=== PATIENT | female | born 1965 | race Caucasian/White ===

== ENCOUNTER 2020-07-24 15:33 | Outpatient (CLI) | payer BC, SELFPAY ==
[2020-07-24 17:04] LABS: Hematocrit 50.9 % (37.0-47.0); Hemoglobin 16.3 g/dL (12.0-15.0); Mean Corpuscular Hemoglobin 27.1 pg (26-34); Mean Corpuscular Volume 84.6 fl (80-100); Mean Platelet Volume 9.9 fl (7.4-10.4); Platelet Count Result 488 k/mm3 (150-375); Red Blood Count 6.02 M/mm3 (4.2-5.4); Red Cell Distribution Width 15.7 % (11.5-14.5); White Blood Count 21.6 K/mm3 (4.5-10.0)
[2020-07-24 17:15] LABS: Alanine Aminotransferase 29 U/L (4-35); Albumin Level 4.4 g/dL (3.5-5.1); Alkaline Phosphatase 104 U/L (38-126); Anion Gap 11 mmol/L (8-16); Aspartate Amino Transferase 29 U/L (14-36); Bilirubin,Total 0.6 mg/dL (0.2-1.3); Blood Urea Nitrogen 30 mg/dL (7-17); Calcium 9.6 mg/dL (8.4-10.2); Carbon Dioxide 30 mmol/L (22-30); Chloride 100 mmol/L (98-107); Cholesterol 226 mg/dL (0-200); Estimated Glomerular Filt Rate 23; Glucose 144 mg/dL (65-105); HDL Direct 41 mg/dL; Potassium 3.8 mmol/L (3.4-5.0); Sodium 141 mmol/L (137-145); Triglycerides 191 mg/dL (<150)
[2020-07-24 17:26] LABS: LDL Cholesterol Direct 145 mg/dL
[2020-07-24 17:38] LABS: Hemoglobin A1C 7.2 % (<5.7)
== END 2020-07-24 15:34 | disposition home or self-care (01) ==
LOC: ANHLAB 15:35
PROVIDERS: PCP Family Medicine; Visit Provider Family Medicine
DX: Z13.1 Encounter for screening for diabetes mellitus (principal); I10 Essential (primary) hypertension; G89.29 Other chronic pain; E66.01 Morbid (severe) obesity due to excess calories; E11.9 Type 2 diabetes mellitus without complications
CPT/HCPCS: 36415; 80053; 80061; 83036; 85027

== ENCOUNTER 2020-08-20 16:54 | Outpatient (CLI) | payer BC, SELFPAY ==
[2020-08-20 17:14] LABS: Basophils Absolute Auto 0.1 K/mm3 (0.0-0.1); Basophils Percent Auto 0.6 % (0.2-1.2); Eosinophils Absolute Auto 0.6 K/mm3 (0-0.3); Eosinophils Percent Auto 3.4 % (0-4.4); Hematocrit 45.7 % (37.0-47.0); Hemoglobin 14.2 g/dL (12.0-15.0); Immature Granulocyte Absolute 0.15 K/mm3 (0.00-0.031); Immature Granulocyte Percent A 0.8 % (0-0.5); Lymphocytes Absolute Auto 3.81 K/mm3 (0.9-3.2); Lymphocytes Percent Auto 20.4 % (18.3-44.2); Mean Corpuscular HGB Conc 31.1 g/dl (32-36); Mean Platelet Volume 9.4 fl (7.4-10.4); Monocytes Absolute Auto 1.2 K/mm3 (0.1-0.6); Monocytes Percent Auto 6.4 % (2.6-8.5); Neutrophils Absolute Auto 12.8 K/mm3 (1.3-6.7); Neutrophils Percent Auto 68.4 % (45.5-73.1); Platelet Count Result 366 k/mm3 (150-375); Red Blood Count 5.25 M/mm3 (4.2-5.4); Red Cell Distribution Width 15.1 % (11.5-14.5); White Blood Count 18.7 K/mm3 (4.5-10.0)
== END 2020-08-20 16:55 | disposition home or self-care (01) ==
LOC: ANHLAB 16:55
PROVIDERS: PCP Family Medicine; Visit Provider Physician Assistant
DX: D72.829 Elevated white blood cell count, unspecified (principal)
CPT/HCPCS: 36415; 85025

== ENCOUNTER → 2020-09-03 16:11 | Outpatient (CLI) | payer BC, SELFPAY ==
--- NOTE | ~2020-09-03 | MR_ITS ---
EXAMINATION: MR brain/brain stem wo con DATE: 09/03/2020 17:21 INDICATION: Drug induced subacute dyskinesia TECHNIQUE: Magnetic resonance imaging (MRI) of the brain and brainstem was performed without intraven ous contrast. Sequences included sagittal and axial T1-weighted SE, axial diffusion-weighted FS SE, a xial T2*-weighted GRE, axial T2-weighted FLAIR, and axial T2-weighted FSE. Apparent diffusion coeffic ient (ADC) maps were created. COMPARISON: 03/07/2008 FINDINGS: There are no areas of restricted diffusion to suggest acute infarction. No intracranial hemorrhage or abnormal intracranial mass lesion. There are no intraparenchymal signal abnormalities. The ventricle s are symmetric and normal in size. No significant change in previously noted increased prominence of the CSF spaces overlying the frontal lobes, left more prominent than right. Flow voids are seen in t he cerebral arteries on the T2-weighted sequences consistent with their expected patency. Changes of bilateral intraocular lens replacement. Visualized orbits and soft tissues are unremarkable. IMPRESSION: 1. Stable appearance of increased CSF spaces overlying the bilateral frontal lobes, left greater than right. Otherwise unremarkable brain MR. Reviewed, dictated and finalized at location . MINER IMPRESSION: 1. Stable appearance of increased CSF spaces overlying the bilateral frontal lo bes, left greater than right. Otherwise unremarkable brain MR.
== END ==
PROVIDERS: PCP Family Medicine; Visit Provider Psychiatry & Neurology Neurology
DX: G24.01 Drug induced subacute dyskinesia (principal)
CPT/HCPCS: 70551

== ENCOUNTER 2020-09-09 12:00 | Outpatient (CLI) | payer BC, SELFPAY ==
--- NOTE | ~2020-09-09 | US_ITS ---
EXAMINATION:US venous doppler LE RT INDICATION:Right leg pain for months. TECHNIQUE: Multiple grayscale, color flow and Doppler images of the right lower extremity deep venous systems were obtained and reviewed. COMPARISON:No prior studies for comparison. FINDINGS: The common femoral, superficial femoral and popliteal veins demonstrate normal respiratory variation, augmentation and compressibility. Color flow is also seen within the greater saphenous an d profunda veins. The posterior tibial, peroneal and soleus veins are not visualized. IMPRESSION: 1: No lower extremity deep venous thrombosis. Limited study. Reviewed, dictated and finalized at location A. ROOM ATTENDANT
== END 2020-09-09 12:01 | disposition home or self-care (01) ==
PROVIDERS: PCP Family Medicine; Visit Provider Physician Assistant
DX: M79.604 Pain in right leg (principal); M79.89 Other specified soft tissue disorders
CPT/HCPCS: 93971

== ENCOUNTER 2020-09-17 12:41 | Outpatient (CLI) | payer BC, SELFPAY ==
[2020-09-21 14:46] LABS: Ceruloplasmin 34 mg/dL (18-53)
== END 2020-09-17 12:42 | disposition home or self-care (01) ==
LOC: ANHLAB 12:44
PROVIDERS: PCP Family Medicine; Visit Provider Psychiatry & Neurology Neurology
DX: G24.01 Drug induced subacute dyskinesia (principal)
CPT/HCPCS: 36415; 82390; 82525

== ENCOUNTER 2020-09-30 13:13 | Outpatient (CLI) | payer BC, SELFPAY ==
[2020-09-30 13:32] LABS: Basophils Absolute Auto 0.1 K/mm3 (0.0-0.1); Basophils Percent Auto 0.5 % (0.2-1.2); Eosinophils Absolute Auto 0.3 K/mm3 (0-0.3); Eosinophils Percent Auto 1.8 % (0-4.4); Hemoglobin 15.4 g/dL (12.0-15.0); Immature Granulocyte Absolute 0.08 K/mm3 (0.00-0.031); Immature Granulocyte Percent A 0.5 % (0-0.5); Lymphocytes Absolute Auto 3.52 K/mm3 (0.9-3.2); Lymphocytes Percent Auto 21.7 % (18.3-44.2); Mean Corpuscular HGB Conc 30.8 g/dl (32-36); Mean Corpuscular Hemoglobin 26.7 pg (26-34); Mean Corpuscular Volume 86.8 fl (80-100); Mean Platelet Volume 9.6 fl (7.4-10.4); Monocytes Absolute Auto 0.9 K/mm3 (0.1-0.6); Monocytes Percent Auto 5.4 % (2.6-8.5); Neutrophils Absolute Auto 11.4 K/mm3 (1.3-6.7); Neutrophils Percent Auto 70.1 % (45.5-73.1); Platelet Count Result 388 k/mm3 (150-375); Red Blood Count 5.76 M/mm3 (4.2-5.4); Red Cell Distribution Width 14.7 % (11.5-14.5); White Blood Count 16.2 K/mm3 (4.5-10.0)
[2020-09-30 16:37] LABS: Alanine Aminotransferase 28 U/L (4-35); Albumin Level 4.1 g/dL (3.5-5.1); Alkaline Phosphatase 83 U/L (38-126); Anion Gap 7 mmol/L (8-16); Aspartate Amino Transferase 25 U/L (14-36); Bilirubin,Total 0.5 mg/dL (0.2-1.3); Blood Urea Nitrogen 19 mg/dL (7-17); CRP 1.8 mg/dL (<1.0); Carbon Dioxide 33 mmol/L (22-30); Chloride 100 mmol/L (98-107); Estimated Glomerular Filt Rate > 60; Glucose 125 mg/dL (65-105); Sodium 140 mmol/L (137-145)
[2020-09-30 16:53] LABS: Erythrocyte Sedimentation Rate 7 mm/hr (0-20)
== END 2020-09-30 13:14 | disposition home or self-care (01) ==
PROVIDERS: PCP Family Medicine; Visit Provider Internal Medicine Hematology & Oncology
DX: D72.829 Elevated white blood cell count, unspecified (principal)
CPT/HCPCS: 36415; 80053; 85025; 85652; 86140; 88184

== ENCOUNTER 2021-02-05 11:13 | Outpatient (CLI) | payer BC, SELFPAY ==
[2021-02-05 11:33] LABS: Basophils Absolute Auto 0.2 K/mm3 (0.0-0.1); Eosinophils Absolute Auto 0.6 K/mm3 (0-0.3); Eosinophils Percent Auto 3.8 % (0-4.4); Hematocrit 48.8 % (37.0-47.0); Hemoglobin 15.1 g/dL (12.0-15.0); Immature Granulocyte Absolute 0.07 K/mm3 (0.00-0.031); Immature Granulocyte Percent A 0.4 % (0-0.5); Lymphocytes Absolute Auto 4.07 K/mm3 (0.9-3.2); Lymphocytes Percent Auto 24.2 % (18.3-44.2); Mean Corpuscular HGB Conc 30.9 g/dl (32-36); Mean Corpuscular Hemoglobin 27.7 pg (26-34); Mean Corpuscular Volume 89.4 fl (80-100); Mean Platelet Volume 9.6 fl (7.4-10.4); Monocytes Absolute Auto 1.1 K/mm3 (0.1-0.6); Monocytes Percent Auto 6.7 % (2.6-8.5); Neutrophils Absolute Auto 10.7 K/mm3 (1.3-6.7); Neutrophils Percent Auto 63.9 % (45.5-73.1); Platelet Count Result 359 k/mm3 (150-375); Red Blood Count 5.46 M/mm3 (4.2-5.4); Red Cell Distribution Width 14.6 % (11.5-14.5); White Blood Count 16.8 K/mm3 (4.5-10.0)
[2021-02-05 11:43] LABS: Alanine Aminotransferase 28 U/L (4-35); Albumin Level 4.3 g/dL (3.5-5.1); Alkaline Phosphatase 91 U/L (38-126); Anion Gap 6 mmol/L (8-16); Aspartate Amino Transferase 36 U/L (14-36); Bilirubin,Total 0.3 mg/dL (0.2-1.3); Blood Urea Nitrogen 28 mg/dL (7-17); Calcium 9.8 mg/dL (8.4-10.2); Carbon Dioxide 32 mmol/L (22-30); Chloride 105 mmol/L (98-107); Cholesterol 256 mg/dL (0-200); Estimated Glomerular Filt Rate 36; Glucose 92 mg/dL (65-105); HDL Direct 49 mg/dL; Potassium 4.4 mmol/L (3.4-5.0); Sodium 143 mmol/L (137-145); Triglycerides 256 mg/dL (<150)
[2021-02-05 11:54] LABS: LDL Cholesterol Direct 125 mg/dL
[2021-02-05 12:20] LABS: Hemoglobin A1C 5.5 % (<5.7)
[2021-02-05 12:44] LABS: Creatinine Urine 331.1 mg/dL
[2021-02-05 12:47] LABS: MALB Creatinine Ratio 13.7 mg/g (0-30); Microalbumin Urine Random 45.4 mg/L (0-16.7)
== END 2021-02-05 11:14 | disposition home or self-care (01) ==
PROVIDERS: PCP Family Medicine; Visit Provider Family Medicine
DX: E11.9 Type 2 diabetes mellitus without complications (principal); I10 Essential (primary) hypertension; E78.2 Mixed hyperlipidemia
CPT/HCPCS: 36415; 80053; 80061; 82043; 83036; 85025

== ENCOUNTER → 2021-05-14 13:58 | Outpatient (CLI) | payer BC, SELFPAY ==
--- NOTE | ~2021-05-14 | MR_ITS ---
EXAMINATION: MR hip LT wo con DATE: 05/14/2021 15:26 INDICATION: Left hip pain TECHNIQUE: Magnetic resonance imaging (MRI) of the left hip was performed without intravenous contra st. Sequences included full-field axial PD-weighted FS FSE and T1-weighted FSE, coronal of the pelvis with PD-weighted FS FSE, T2-weighted FSE and T1-weighted FSE, small field of view of the left hip w ith axial PD-weighted FS FSE, sagittal PD-weighted FS FSE, coronal PD-weighted FS FSE and coronal T2 weighted FSE. Additional radial T1-weighted FGR oriented orthogonal to the acetabular rim were obtai heather for evaluation of the labrum. COMPARISON: None FINDINGS: Bones/labrum/cartilage: Lumbar levoscoliosis with moderate spondylosis. Bone alignment is otherwise normal. Normal marrow sig nal. No fracture, avascular necrosis or pathologic marrow replacing process. Mild osteoarthritis at t he left hip with nonuniform joint space narrowing and marginal osteophytes along the superolateral ri m of the acetabulum replacing portion of the labrum which appears diminutive but without discrete tea r. Fluid: Symmetric physiologic amount of fluid within both hip joints. Mild increased fluid signal overlying t he left greater trochanter consistent with mild trochanteric bursitis. No other abnormal fluid collec tions identified. Soft tissues: Normal muscle signal with no asymmetric muscular atrophy in the pelvis or visualized proximal thighs. The iliopsoas, gluteal and proximal hamstring tendons are normal. 4.1 x 3.8 cm cystic lesion at the left adnexa with a few thin internal septations. The right ovary is not definitively visualized. Norm al appendix. Mild to moderate diverticulosis along the descending and sigmoid colon without adjacent inflammatory change to suggest diverticulitis. Fat-containing ventral hernia to the right of midline at the anterior right lower quadrant which measures up to 6.7 x 4.9 cm. No pathologically enlarged p elvic/inguinal lymphadenopathy. IMPRESSION: 1. Mild left hip osteoarthritis with likely chronic degeneration of the small remaining labrum. 2. Mild left trochanteric bursitis. 3. 4.1 cm complex cystic left adnexal region with several thin internal septations which raises real rn for neoplasm which in the absence of more nodular solid soft tissue components would favor cystade noma over cystadenocarcinoma. Recommend UTILITIES ESTIMATOR AND DRAFTER consultation. 4. Diverticulosis. 5. Moderate-sized fat-containing right lower quadrant ventral hernia. Reviewed, dictated and finalized at location A. IMPRESSION: 1. Mild left hip osteoarthritis with likely chronic degeneration of the small r emaining labrum. 2. Mild left trochanteric bursitis. 3. 4.1 cm complex cystic left adnexal region with several thin internal septati ons which raises concern for neoplasm which in the absence of more nodular markie d soft tissue components would favor cystadenoma over cystadenocarcinoma. Recom mend UTILITIES ESTIMATOR AND DRAFTER consultation. 4. Diverticulosis. 5. Moderate-sized fat-containing right lower quadrant ventral hernia.
--- NOTE | ~2021-05-14 | MR_ITS ---
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 TECHNIQUE: Multi-sequential, multiplanar MR images of the lumbar spine were obtained without contrast . Sagittal T1, T2, T2 fat saturation images. Axial T2 weighted images. Comparison is made to prior examination from 05/29/2017. FINDINGS: Metallic artifact emanating from region of left L1 posterior elements. There is moderate lo wer thoracic dextroscoliosis. Moderate loss of the L1-2 and L2-3 disc height, mild to moderate at the other lumbar levels. There are no focal marrow signal abnormalities suspicious for malignancy or acu te fracture. The vertebral bodies are aligned in the AP dimension. Paraspinal soft tissue is unremark able. Level by level evaluation: T12-L1: Disc does not extend beyond the endplate margin. Facet arthropathy: Poorly visualized. Neural foraminal stenosis: No stenosis. Central canal stenosis: No stenosis. L1-L2: Disc does not extend beyond the endplate margin. Facet arthropathy: Mild bilateral. Neural foraminal stenosis: No stenosis. Central canal stenosis: No stenosis. L2-L3: There is a mild diffuse disc bulge. Facet arthropathy: Mild to moderate right, mild left. Neural foraminal stenosis: Mild bilateral. Central canal stenosis: Mild. L3-L4: There is a mild diffuse disc bulge. Facet arthropathy: Mild to moderate bilateral. Neural foraminal stenosis: Mild bilateral. Central canal stenosis: Mild. L4-L5: There is a mild diffuse disc bulge. Facet arthropathy: Moderate. Neural foraminal stenosis: Mild to moderate right, mild left. Central canal stenosis: Mild. L5-S1: Disc does not extend beyond the endplate margin. Facet arthropathy: Mild to moderate. Neural foraminal stenosis: Mild bilateral. Central canal stenosis: No stenosis. IMPRESSION: Overall moderate lumbar spondylosis. Reviewed, dictated and finalized at location B.
== END ==
PROVIDERS: PCP Family Medicine; Visit Provider Physician Assistant
DX: M17.12 Unilateral primary osteoarthritis, left knee (principal); M41.9 Scoliosis, unspecified; M70.72 Other bursitis of hip, left hip; K57.30 Diverticulosis of large intestine without perforation or abscess without bleeding; K43.9 Ventral hernia without obstruction or gangrene; N85.8 Other specified noninflammatory disorders of uterus; M47.16 Other spondylosis with myelopathy, lumbar region; M48.061 Spinal stenosis, lumbar region without neurogenic claudication
CPT/HCPCS: 72148; 73721

== ENCOUNTER 2021-07-02 14:11 | Outpatient (CLI) | payer BC, SELFPAY ==
[2021-07-02 15:24] LABS: Basophils Absolute Auto 0.2 K/mm3 (0.0-0.1); Basophils Percent Auto 1.3 % (0.2-1.2); Eosinophils Absolute Auto 0.3 K/mm3 (0-0.3); Eosinophils Percent Auto 2.1 % (0-4.4); Hematocrit 50.9 % (37.0-47.0); Hemoglobin 15.7 g/dL (12.0-15.0); Immature Granulocyte Absolute 0.04 K/mm3 (0.00-0.031); Immature Granulocyte Percent A 0.3 % (0-0.5); Immature Platelet Fraction Pct 6.8 % (0.9-11.2); Lymphocytes Absolute Auto 3.52 K/mm3 (0.9-3.2); Lymphocytes Percent Auto 26.2 % (18.3-44.2); Mean Corpuscular HGB Conc 30.8 g/dl (32-36); Mean Corpuscular Hemoglobin 28.9 pg (26-34); Mean Corpuscular Volume 93.7 fl (80-100); Mean Platelet Volume 10.5 fl (7.4-10.4); Monocytes Absolute Auto 0.8 K/mm3 (0.1-0.6); Monocytes Percent Auto 5.6 % (2.6-8.5); Neutrophils Absolute Auto 8.7 K/mm3 (1.3-6.7); Neutrophils Percent Auto 64.5 % (45.5-73.1); Platelet Count Result 297 k/mm3 (150-375); Red Blood Count 5.43 M/mm3 (4.2-5.4); Red Cell Distribution Width 14.9 % (11.5-14.5); White Blood Count 13.4 K/mm3 (4.5-10.0)
[2021-07-02 15:34] LABS: Cholesterol 218 mg/dL (0-200); HDL Direct 49 mg/dL; Triglycerides 207 mg/dL (<150)
[2021-07-02 15:35] LABS: Platelet Estimate Adequate (Adequate)
[2021-07-02 15:39] LABS: Hemoglobin A1C 5.5 % (<5.7)
[2021-07-02 15:44] LABS: LDL Cholesterol Direct 97 mg/dL
[2021-07-02 16:09] LABS: Thyroid Stimulating Hormone Reflex 0.584 uIU/mL (0.465-4.68)
[2021-07-07 11:27] LABS: Vitamin D 1,25 (OH)2 Total 30 pg/mL (18-72); Vitamin D2 1,25 (OH)2 <8 pg/mL; Vitamin D3 1,25 (OH)2 30 pg/mL
== END 2021-07-02 14:12 | disposition home or self-care (01) ==
LOC: ANHLAB 14:14
PROVIDERS: PCP Family Medicine; Visit Provider Physician Assistant
DX: E78.2 Mixed hyperlipidemia (principal); R61 Generalized hyperhidrosis; R63.4 Abnormal weight loss; I12.9 Hypertensive chronic kidney disease with stage 1 through stage 4 chronic kidney disease, or unspecified chronic kidney disease; E55.9 Vitamin D deficiency, unspecified; E11.22 Type 2 diabetes mellitus with diabetic chronic kidney disease; N18.32 Chronic kidney disease, stage 3b; G89.4 Chronic pain syndrome
CPT/HCPCS: 36415; 80061; 82652; 83036; 84443; 85025; 85055

== ENCOUNTER → 2021-07-14 12:48 | Outpatient (CLI) | payer BC, SELFPAY ==
--- NOTE | ~2021-07-14 | US_ITS ---
EXAMINATION: US pelvic complete DATE: 07/14/2021 13:16 INDICATION: Left ovarian cyst, postmenopausal TECHNIQUE: Multiple transabdominal sonographic images of the pelvis were obtained. COMPARISON: MRI, 05/14/2021 FINDINGS: The uterus measures 9.3 x 4.2 x 4.9 cm. The endometrial complex measures 3 mm. The right ov phyllis is surgically absent. No right adnexal abnormality is seen. The left ovary measures 3.9 x 3.8 x 4 .7 cm. There is a 2.5 cm cyst of the left ovary which previously measured 4.1 cm. There is normal vas cular flow in the left ovary. There is no free fluid in the pelvis. IMPRESSION: 1. Cystic lesion of the left ovary with interval decrease in size, probably benign. Ultrasound follow -up in 12 months is recommended. Reviewed, dictated and finalized at location A. IMPRESSION: 1. Cystic lesion of the left ovary with interval decrease in size, probably andriy ign. Ultrasound follow-up in 12 months is recommended.
== END ==
PROVIDERS: PCP Family Medicine; Visit Provider Obstetrics & Gynecology
DX: N83.292 Other ovarian cyst, left side (principal)
CPT/HCPCS: 76856

== ENCOUNTER 2021-08-11 15:23 | Outpatient (CLI) | payer BC, SELFPAY ==
[2021-08-11 17:11] LABS: Lactate Dehydrogenase 458 U/L (313-618)
[2021-08-11 17:43] LABS: Carcinoembryonic Antigen 1.5 ng/mL (0.0-3.0)
[2021-08-14 07:42] LABS: CA 19-9 21 U/mL (<34)
[2021-08-15 01:12] LABS: CA-125 17 U/mL (<35)
[2021-08-15 07:06] LABS: HCG Tumor Marker <3 mIU/mL (***)
[2021-08-15 14:48] LABS: Testosterone Free 0.9 pg/mL (0.1-6.4); Testosterone Total 7 ng/dL (2-45)
[2021-08-16 17:37] LABS: Alpha Fetoprotein Tumor Marker 1.9 ng/mL (<6.1)
== END 2021-08-11 15:24 | disposition home or self-care (01) ==
LOC: ANHLAB 15:24
PROVIDERS: PCP Family Medicine; Visit Provider Obstetrics & Gynecology
DX: N83.292 Other ovarian cyst, left side (principal)
CPT/HCPCS: 36415; 82105; 82378; 83520; 83615; 84402; 84403; 84702; 86301; 86304

== ENCOUNTER 2022-02-18 13:35 | Outpatient (CLI) | payer BC, SELFPAY ==
[2022-02-18 13:58] LABS: Basophils Absolute Auto 0.1 K/mm3 (0.0-0.1); Basophils Percent Auto 0.7 % (0.2-1.2); Eosinophils Absolute Auto 0.2 K/mm3 (0-0.3); Eosinophils Percent Auto 1.6 % (0-4.4); Hematocrit 50.8 % (37.0-47.0); Hemoglobin 15.6 g/dL (12.0-15.0); Immature Granulocyte Absolute 0.06 K/mm3 (0.00-0.031); Immature Granulocyte Percent A 0.4 % (0-0.5); Lymphocytes Absolute Auto 3.52 K/mm3 (0.9-3.2); Lymphocytes Percent Auto 23.9 % (18.3-44.2); Mean Corpuscular HGB Conc 30.7 g/dl (32-36); Mean Corpuscular Hemoglobin 28.4 pg (26-34); Mean Corpuscular Volume 92.5 fl (80-100); Mean Platelet Volume 9.3 fl (7.4-10.4); Monocytes Absolute Auto 0.9 K/mm3 (0.1-0.6); Monocytes Percent Auto 5.9 % (2.6-8.5); Neutrophils Absolute Auto 9.9 K/mm3 (1.3-6.7); Neutrophils Percent Auto 67.5 % (45.5-73.1); Platelet Count Result 342 k/mm3 (150-375); Red Blood Count 5.49 M/mm3 (4.2-5.4); Red Cell Distribution Width 13.9 % (11.5-14.5); White Blood Count 14.7 K/mm3 (4.5-10.0)
[2022-02-18 14:08] LABS: Alanine Aminotransferase 47 U/L (4-35); Albumin Level 4.3 g/dL (3.5-5.1); Alkaline Phosphatase 100 U/L (38-126); Anion Gap 6 mmol/L (8-16); Aspartate Amino Transferase 47 U/L (14-36); Bilirubin,Total 0.2 mg/dL (0.2-1.3); Blood Urea Nitrogen 17 mg/dL (7-17); Calcium 8.5 mg/dL (8.4-10.2); Carbon Dioxide 27 mmol/L (22-30); Chloride 107 mmol/L (98-107); Estimated Glomerular Filt Rate 52; Glucose 112 mg/dL (65-110); Potassium 3.9 mmol/L (3.4-5.0); Sodium 140 mmol/L (137-145)
[2022-02-18 14:10] LABS: Hemoglobin A1C 5.6 % (<5.7)
== END 2022-02-18 13:36 | disposition home or self-care (01) ==
LOC: ANHLAB 13:37
PROVIDERS: PCP Family Medicine; Visit Provider Nurse Practitioner Gerontology
DX: E78.2 Mixed hyperlipidemia (principal); I10 Essential (primary) hypertension; N18.4 Chronic kidney disease, stage 4 (severe)
CPT/HCPCS: 36415; 80053; 83036; 84443; 85025

== ENCOUNTER 2022-04-29 10:58 | Outpatient (CLI) | payer BC, SELFPAY ==
[2022-04-29 11:57] LABS: Alanine Aminotransferase 20 U/L (6-35); Albumin Level 3.9 g/dL (3.5-5.1); Alkaline Phosphatase 88 U/L (38-126); Anion Gap 2 mmol/L (8-16); Aspartate Amino Transferase 22 U/L (14-36); Bilirubin,Total 0.4 mg/dL (0.2-1.3); Blood Urea Nitrogen 21 mg/dL (7-17); Calcium 8.8 mg/dL (8.4-10.2); Carbon Dioxide 36 mmol/L (22-30); Chloride 101 mmol/L (98-107); Estimated Glomerular Filt Rate 52; Glucose 110 mg/dL (65-110); Potassium 4.2 mmol/L (3.4-5.0); Sodium 139 mmol/L (137-145)
== END 2022-04-29 10:59 | disposition home or self-care (01) ==
LOC: ANHLAB 11:00
PROVIDERS: PCP Family Medicine; Visit Provider Physician Assistant
DX: E11.9 Type 2 diabetes mellitus without complications (principal)
CPT/HCPCS: 36415; 80053